=== PATIENT | male | born 1990 | race African-American/Black ===

== ENCOUNTER 2016-06-02 22:30 | Emergency (ER) | payer OTHER ==
[2016-06-02 22:43] VITALS: BP 140/75; PULSE 67; TEMP 97.9; BMI 34.0
--- NOTE | 2016-06-02 23:01 | PDOC ---
History of Present Illness - General Chief Complaint: Sore Throat Stated Complaint: COLD SYMPTOMS Time Seen by Provider: 06/02/16 22:41 History Source: Patient Exam Limitations: No Limitations - History of Present Illness Timing/Duration: other (4 days) Past History - Travel Traveled outside of the country in the last 30 days: No Close contact w/someone who was outside of country & ill: No - Past Medical History Allergies/Adverse Reactions: Allergies Allergy/AdvReac Type Severity Reaction Status Date / Time No Known Allergies Allergy Verified 06/02/16 23:46 Home Medications: Ambulatory Orders NK [No Known Home Medication] 06/02/16 Anemia: No Asthma: No Cancer: No Cardiac Disorders: Yes (benign heart murmur) CVA: No COPD: No CHF: No Dementia: No Diabetes: No GI Disorders: No Disorders: No HTN: No Hypercholesterolemia: No Kidney Stones: No Liver Disease: No Suicide Attempt (Hx): Yes (16 years old) Seizures: Yes Thyroid Disease: No - Surgical History Abdominal Surgery: No Appendectomy: No Cardiac Surgery: No Cholecystectomy: No Lung Surgery: No Neurologic Surgery: No Orthopedic Surgery: No - Reproductive History Testicular Surgery: No - Psycho/Social/Smoking Cessation Hx Anxiety: No Suicidal Ideation: Yes Smoking History: Current every day smoker Have you smoked in the past 12 months: Yes Number of Cigarettes Smoked Daily: 10 Information on smoking cessation initiated: No 'Breaking Loose' booklet given: 12/11/11 Hx Alcohol Use: No Drug/Substance Use Hx: Yes Substance Use Type: Marijuana, Opiates Hx Substance Use Treatment: No Review of Systems - Review of Systems Able to Perform ROS?: Yes Comments:: 06/02/16 23:55 CONSTITUTIONAL: Absent: fever, chills, diaphoresis, generalized weakness, malaise, loss of appetite HEENT: +throat pain Absent: rhinorrhea, nasal congestion, throat swelling, difficulty swallowing, mouth swelling, ear pain, eye pain, visual Changes CARDIOVASCULAR: Absent: chest pain, loss of consciousness, palpitations, irregular heart rate, peripheral edema RESPIRATORY: Absent: cough, shortness of breath, dyspnea with exertion, orthopnea, wheezing, stridor, hemoptysis GASTROINTESTINAL: Absent: abdominal pain, abdominal distension, nausea, vomiting, diarrhea, constipation, melena, hematochezia SKIN: Absent: rash, itching, pallor Is the patient limited Setswana proficient: No *Physical Exam - Vital Signs Last Vital Signs Temp Pulse Resp BP Pulse Ox 97.9 F 67 20 140/75 98 06/02/16 22:40 06/02/16 22:40 06/02/16 22:40 06/02/16 22:40 06/02/16 22:40 - Physical Exam Comments: 06/02/16 23:56 GENERAL: Well developed, well nourished. Awake and alert. No acute distress. HEENT: right tonsillar region; mild erythematous/ neg swelling/neg exudate Normocephalic, atraumatic. PERRLA, EOMI. No conjunctival pallor. Sclera are non- icteric. Moist mucous membranes. NECK: Supple. Full ROM. No JVD. Carotid pulses 2+ and symmetric, without bruits. No thyromegaly. No lymphadenopathy. CARDIOVASCULAR: Regular rate and rhythm. No murmurs, rubs, or gallops. Distal pulses are 2+ and symmetric. PULMONARY: No evidence of respiratory distress. Lungs clear to auscultation bilaterally. No wheezing, rales or rhonchi. ABDOMINAL: Soft. Non-tender. Non-distended. No rebound or guarding. No organomegaly. Normoactive bowel sounds. *DC/Admit/Observation/Transfer Diagnosis at time of Disposition: Pharyngitis Qualifiers: Pharyngitis/tonsillitis etiology: unspecified etiology Qualified Code(s): J02.9 - Acute pharyngitis, unspecified - Discharge Dispostion Disposition: HOME Condition at time of disposition: Improved Admit: No - Referrals Referrals: STAFF,NOT ON [Non Staff, Medical] - - Patient Instructions Printed Discharge Instructions: DI for Viral Pharyngitis Additional Instructions: Gargle with salt water Take tylenol/motrin as needed for pain Follow up with your physician or the ENT listed on your discharge Return to the ER for severe/persistent or worsening symptoms Progress Note - Progress Note Progress Note: 26-year-old male presents to the emergency department complaining of a sore throat 4 days. Patient denies difficulty/pain swallowing, fever, chills, nausea /vomiting, rhinorrhea, facial pain, abdominal discomfort or shortness of breath. Pt is tolerating solids/fluid w/o difficulties.
--- NOTE | 2016-06-02 23:56 | PDOC ---
*Physical Exam - Vital Signs Last Vital Signs Temp Pulse Resp BP Pulse Ox 97.9 F 67 20 140/75 98 06/02/16 22:40 06/02/16 22:40 06/02/16 22:40 06/02/16 22:40 06/02/16 22:40 ED Treatment Course - ADDITIONAL ORDERS Additional order review: 06/02/16 22:35 Group A Strep Rapid Antigen - Final Throat Medical Decision Making - Medical Decision Making 06/02/16 23:55 agree with care from CHIARA Stevens *DC/Admit/Observation/Transfer Diagnosis at time of Disposition: Pharyngitis Qualifiers: Pharyngitis/tonsillitis etiology: unspecified etiology Qualified Code(s): J02.9 - Acute pharyngitis, unspecified - Discharge Dispostion Disposition: HOME Condition at time of disposition: Improved - Referrals Referrals: STAFF,NOT ON [Non Staff, Medical] - - Patient Instructions Printed Discharge Instructions: DI for Viral Pharyngitis Additional Instructions: Gargle with salt water Take tylenol/motrin as needed for pain Follow up with your physician or the ENT listed on your discharge Return to the ER for severe/persistent or worsening symptoms - Post Discharge Activity
== END 2016-06-03 00:02 | disposition home or self-care (01) ==
LOC: SUPCPDRO 22:30 → JER 22:30
DX: J02.9 Acute pharyngitis, unspecified (principal); F17.210 Nicotine dependence, cigarettes, uncomplicated; R01.1 Cardiac murmur, unspecified
CPT/HCPCS: 87070; 87430; 99281-25

== ENCOUNTER 2016-06-04 05:10 | Emergency (ER) | payer OTHER ==
--- NOTE | 2016-06-04 05:31 | PDOC ---
History of Present Illness - General Chief Complaint: Respiratory Stated Complaint: DIFFICULTY BREATHING Time Seen by Provider: 06/04/16 05:29 History Source: Patient Exam Limitations: No Limitations - History of Present Illness Timing/Duration: reports: week (one week), this evening Possible Cause: Yes: no prior episodes Associated Symptoms: reports: cough. denies: chest pain/soreness, facial pain, fever/chills, nasal congestion, nasal drainage, sore throat Past History - Travel Traveled outside of the country in the last 30 days: No Close contact w/someone who was outside of country & ill: No - Past Medical History Allergies/Adverse Reactions: Allergies Allergy/AdvReac Type Severity Reaction Status Date / Time No Known Allergies Allergy Verified 06/04/16 05:26 Home Medications: Ambulatory Orders NK [No Known Home Medication] 06/02/16 Anemia: No Asthma: No Cancer: No Cardiac Disorders: Yes (benign heart murmur) CVA: No COPD: No CHF: No Dementia: No Diabetes: No GI Disorders: No Disorders: No HTN: No Hypercholesterolemia: No Kidney Stones: No Liver Disease: No Suicide Attempt (Hx): Yes (16 years old) Seizures: Yes Thyroid Disease: No - Surgical History Abdominal Surgery: No Appendectomy: No Cardiac Surgery: No Cholecystectomy: No Lung Surgery: No Neurologic Surgery: No Orthopedic Surgery: No - Reproductive History Testicular Surgery: No - Psycho/Social/Smoking Cessation Hx Anxiety: No Suicidal Ideation: No Smoking History: Current every day smoker Have you smoked in the past 12 months: Yes Number of Cigarettes Smoked Daily: 2 Information on smoking cessation initiated: No 'Breaking Loose' booklet given: 12/11/11 Hx Alcohol Use: No Drug/Substance Use Hx: Yes (PCP) Substance Use Type: Marijuana, Opiates Hx Substance Use Treatment: No Respiratory Specific PMHX - Complaint Specific PMHX TB (Tuberculosis): No Review of Systems - Review of Systems Able to Perform ROS?: Yes Comments:: 06/04/16 05:32 CONSTITUTIONAL: Absent: fever, chills, diaphoresis, generalized weakness, malaise, loss of appetite HEENT: Absent: rhinorrhea, nasal congestion, throat pain, throat swelling, difficulty swallowing, mouth swelling, ear pain, eye pain, visual Changes CARDIOVASCULAR: Absent: chest pain, loss of consciousness, palpitations, irregular heart rate, peripheral edema RESPIRATORY: +cough Absent: shortness of breath, dyspnea with exertion, orthopnea, wheezing, stridor , hemoptysis GASTROINTESTINAL: Absent: abdominal pain, abdominal distension, nausea, vomiting, diarrhea, constipation, melena, hematochezia GENITOURINARY: Absent: dysuria, frequency, urgency, hesitancy, hematuria, flank pain, genital pain MUSCULOSKELETAL: Absent: myalgia, arthralgia, joint swelling SKIN: Absent: rash, itching, pallor HEMATOLOGIC/IMMUNOLOGIC: Absent: easy bleeding, easy bruising, lymphadenopathy, frequent infections ENDOCRINE: Absent: unexplained weight gain, unexplained weight loss, heat intolerance, cold intolerance NEUROLOGIC: Absent: headache, focal weakness or paresthesias, dizziness, unsteady gait, seizure, mental status changes, bladder or bowel incontinence PSYCHIATRIC: Absent: anxiety, depression, suicidal or homicidal ideation, hallucinations. 06/04/16 05:32 Is the patient limited Romansh proficient: No *Physical Exam - Vital Signs Last Vital Signs Temp Pulse Resp BP Pulse Ox 97.9 F 60 18 126/93 98 06/04/16 05:23 06/04/16 05:23 06/04/16 05:23 06/04/16 05:23 06/04/16 05:23 - Physical Exam Comments: 06/04/16 05:32 GENERAL: Well developed, well nourished. Awake and alert. No acute distress. HEENT: Normocephalic, atraumatic. PERRLA, EOMI. No conjunctival pallor. Sclera are non- icteric. Moist mucous membranes. Oropharynx is clear. NECK: Supple. Full ROM. No JVD. Carotid pulses 2+ and symmetric, without bruits. No thyromegaly. No lymphadenopathy. CARDIOVASCULAR: Regular rate and rhythm. No murmurs, rubs, or gallops. Distal pulses are 2+ and symmetric. PULMONARY: No evidence of respiratory distress. Lungs clear to auscultation bilaterally. No wheezing, rales or rhonchi. ABDOMINAL: Soft. Non-tender. Non-distended. No rebound or guarding. No organomegaly. Normoactive bowel sounds. MUSCULOSKELETAL Normal range of motion at all joints. No bony deformities or tenderness. No CVA tenderness. EXTREMITIES: No cyanosis. No clubbing. No edema. No calf tenderness. SKIN: Warm and dry. Normal capillary refill. No rashes. No jaundice. NEUROLOGICAL: Alert, awake, appropriate. Cranial nerves 2-12 intact. No deficits to light touch and temperature in face, upper extremities and lower extremities. No motor deficits in the in face, upper extremities and lower extremities. Normoreflexic in the upper and lower extremities. Normal speech. Toes are down- going bilaterally. Gait is normal without ataxia. PSYCHIATRIC: Cooperative. Good eye contact. Appropriate mood and affect. ED Treatment Course - RADIOLOGY Radiograph Interpretation: 06/04/16 05:51 CXR 2v; NAD Progress Note - Progress Note Progress Note: 26-year-old male presents to the emergency department complaining of a nonproductive intermittent cough without fever, chills, nausea/vomiting, diarrhea/constipation, facial pain, headache, dizziness, lightheadedness, neck pains, chest pain, shortness of breath, abdominal pains, urinary symptoms. Patient states he had a sore throat for 5 days which has subsided this morning *DC/Admit/Observation/Transfer Diagnosis at time of Disposition: Cough - Discharge Dispostion Disposition: HOME Condition at time of disposition: Stable - Referrals Referrals: Desire Nazario MD [Staff Physician] - - Patient Instructions Printed Discharge Instructions: Cough Additional Instructions: Rest Increase fluids Tylenol/motrin as needed for pain Take Robitussin over the counter for cough Return to the Er for severe/persistent/worsening symptoms
[2016-06-04 05:35] VITALS: BP 126/93; PULSE 60; TEMP 97.9; BMI 34.0
== END 2016-06-04 06:17 | disposition home or self-care (01) ==
LOC: JER 05:10
DX: R05 Cough (principal)
CPT/HCPCS: 71020-TC; 99281-25

== ENCOUNTER 2024-06-10 18:48 | Inpatient (IN) | payer OTHER ==
[2024-06-10 19:03] VITALS: BMI 32.5
[2024-06-10] MEDS ORDERED: ACETAMINOPHEN 325 MG TABLET (FP) PO PRN (19:36)
[2024-06-10] MEDS ORDERED: NICOTINE POLACRILEX 2 MG GUM BUC PRN (19:36)
[2024-06-10] MEDS ORDERED: MAGNESIUM HYDROX 2400MG/30ML ORAL SUSPENSION 30 ML CUP PO PRN (19:36)
[2024-06-10] MEDS ORDERED: MAG HYDROX/AL HYDROX/SIMETH 30 ML UNIT-DOSE CUP PO PRN (19:36)
[2024-06-10] MEDS ORDERED: BENZOCAINE/MENTHOL (CHLORASEPTIC ) LOZENGE MM PRN (19:36)
[2024-06-10] MEDS ORDERED: NALOXONE (NARCAN) HCL 4 MG/0.1 ML SPRAY NS PRN (19:36)
[2024-06-10] MEDS ORDERED: NICOTINE POLACRILEX 2 MG LOZENGE BC PRN (19:36)
[2024-06-10] MEDS ORDERED: LOPERAMIDE HCL 2 MG CAPSULE PO PRN (19:36)
[2024-06-10] MEDS ORDERED: guaiFENesin 600 MG TABLET.ER (FP) PO PRN (19:36)
[2024-06-10] MEDS ORDERED: IBUPROFEN 400 MG TABLET (FP) PO PRN (19:36)
[2024-06-10] MEDS ORDERED: POLYETHYLENE GLYCOL (HEALTHYLAX) 3350 17 GM PACKET PO PRN (19:36)
[2024-06-10] MEDS ORDERED: IBUPROFEN 600 MG TABLET (FP) PO PRN (19:36)
[2024-06-10] MEDS ORDERED: BENZONATATE 200 MG CAPSULE PO PRN (19:36)
[2024-06-10] MEDS ORDERED: MELATONIN 5 MG TABLETS ONE (22:07)
[2024-06-10] MEDS: THIAMINE 100 MG TABLET PO SCH (22:09)
[2024-06-10] MEDS: MELATONIN 5 MG TABLETS PO SCH (22:09)
[2024-06-10] MEDS ORDERED: TUBERCULIN PPD 5 TU/0.1ML SYRINGE (IN PATIENT USE ONLY) ID ONE (23:37)
[2024-06-11 01:36] VITALS: RESP 18
[2024-06-11 06:49] VITALS: BP 147/80; PULSE 77; TEMP 97.6
[2024-06-11] MEDS: TUBERCULIN PPD 5 TU/0.1ML SYRINGE (IN PATIENT USE ONLY) ID ONE (11:00)
[2024-06-11] MEDS: PRENATAL VITAMINS W/ FOLIC ACID TABLET (FP) PO SCH (11:00)
[2024-06-11 11:14] LABS: HEMATOCRIT 40.1 % (35.4-49); HEMOGLOBIN 12.7 GM/dL (11.7-16.9); MCH 25.8 pg (25.7-33.7); MCHC 31.8 g/dl (32.0-35.9); MEAN CELL VOLUME 81.3 fl (80-96); PLATELET COUNT 206 10^3/uL (134-434); RBC 4.93 M/mm3 (4.00-5.60); RDW 16.8 % (11.9-15.9); WHITE BLOOD COUNT 7.2 K/mm3 (4.0-10.0)
[2024-06-11 12:56] LABS: CALCIUM 8.5 mg/dL (8.5-10.1)
[2024-06-11 12:57] LABS: BLOOD UREA NITROGEN 15.7 mg/dL (7-18)
[2024-06-11 12:59] LABS: CREATININE 1.3 mg/dL (0.55-1.3)
[2024-06-11 13:01] LABS: BILIRUBIN,TOTAL 0.2 mg/dL (0.2-1); TOT PROT 5.8 g/dl (6.4-8.2)
[2024-06-11 16:29] LABS: HCV DIAGNOSTIC IN-HOUSE W/RFLX NON-REACTIVE (NONREACTIVE)
[2024-06-11 16:48] LABS: SYPHILIS W/ RPR CONF REACTIVE (NONREACTIVE)
== END 2024-06-11 13:21 | disposition home or self-care (01) | DRG 895 ==
LOC: YASAS 18:48 → Y3E 23:27
PROVIDERS: ADMIT Psychiatry & Neurology Pain Medicine; ATTEND Allergy & Immunology
PROC: HZ42ZZZ Group Counseling for Substance Abuse Treatment, Cognitive-Behavioral (ICD-10-PCS; principal; 2024-06-10)
DX: F10.20 Alcohol dependence, uncomplicated (principal); F14.20 Cocaine dependence, uncomplicated; F16.20 Hallucinogen dependence, uncomplicated; F12.20 Cannabis dependence, uncomplicated; F17.210 Nicotine dependence, cigarettes, uncomplicated; F20.9 Schizophrenia, unspecified
CPT/HCPCS: 0241U-QW; 36415; 80053; 80305; 80307; 85027; 86593; 86780; 86803; 93005; 93010